=== PATIENT | female | born 1950 | race African-American/Black ===

== ENCOUNTER 2019-12-18 08:32 | Day surgery (SDC) | payer MEDICARE, MEDICAID, OTHER ==
[~2019-12-18] VITALS: Ht 165.1 cm; Wt 64.0 kg
[2019-12-18] MEDS ORDERED: SODIUM CHLORIDE 0.9% 1,000 ML IV SCH (09:00)
[2019-12-18 10:50] LABS: BASOPHILS % 0.6 % (0.0-2.0); EOSINOPHILS % 0.8 % (0.0-5.0); HEMATOCRIT. 27.8 % (36.0-48.0); HEMOGLOBIN. 9.4 g/dL (12.0-16.0); LYMPHOCYTES % 13.7 % (20.0-50.0); MEAN CORPUSCULAR HEMOGLOBIN 29.9 pg (28.0-32.0); MEAN CORPUSCULAR VOLUME 88.4 fL (81.0-99.0); MEAN PLATELET VOLUME 8.4 fl (7.4-10.4); MONOCYTES % 7.6 % (2.0-8.0); NEUTROPHILS % 77.3 % (40.0-76.0); PLATELET 193 x1000/uL (130-400); RED BLOOD CELL COUNT 3.14 mill/uL (4.2-5.4); RED CELL DISTRIBUTION WIDTH 14.2 % (11.6-14.6)
[2019-12-18 10:58] LABS: PARTIAL THROMBOPLASTIN TIME 25.2 sec (23.4-31.0); PROTHROMBIN TIME 10.6 sec (9.6-11.0)
[2019-12-18] MEDS ORDERED: CITA20TA19 PO (11:32)
[2019-12-18] MEDS ORDERED: AMLO5TAB88 PO (11:32)
[2019-12-18] MEDS ORDERED: INSU100I28 SQ (11:32)
[2019-12-18] MEDS ORDERED: FLUT9.9S NS (11:32)
[2019-12-18] MEDS ORDERED: ASPI-1497 PO (11:32)
[2019-12-18] MEDS ORDERED: LINA5TAB PO (11:32)
[2019-12-18] MEDS ORDERED: CYAN-33 PO (11:33)
[2019-12-18] MEDS ORDERED: TRAM50TA3 PO (11:33)
[2019-12-18] MEDS ORDERED: DIOS630T PO (11:33)
[2019-12-18] MEDS ORDERED: ACET325C4 PO (11:33)
[2019-12-18] MEDS ORDERED: HALO10TA13 PO (11:33)
[2019-12-18] MEDS ORDERED: FENTANYL CITRATE/PF 50MCG/ML 2ML VIAL ONE (13:07)
[2019-12-18] MEDS ORDERED: PROPOFOL 200MG/20ML VIAL IV ONE (13:07)
[2019-12-18] MEDS ORDERED: MIDAZOLAM HCL 2 MG/2 ML VIAL ONE (13:07)
[2019-12-18] MEDS ORDERED: EPHEDRINE SULFATE 50MG/ML VIAL ONE (13:08)
[2019-12-18] MEDS ORDERED: SODIUM CHLORIDE 0.9% 10ML VIAL ONE (13:08)
[2019-12-18] MEDS ORDERED: LIDOCAINE HCL/PF 1% 10 MG/ML 5ML VIAL ONE (13:08)
[2019-12-18] MEDS ORDERED: ROCURONIUM BROMIDE 10MG/ML VIAL 5ML IV ONE (13:17)
[2019-12-18] MEDS ORDERED: CEFAZOLIN SODIUM 1000MG/VIAL ONE (13:37)
[2019-12-18] MEDS ORDERED: HYDRALAZINE 20MG/ML VIAL ONE (14:36)
[2019-12-18] MEDS ORDERED: HYDROMORPHONE HCL/PF 2MG/ML CPJ IV PRN (15:00)
== END 2019-12-18 18:10 | disposition home or self-care (01) ==
LOC: OR 08:32
PROVIDERS: ATTEND Obstetrics & Gynecology Obstetrics
DX: N95.0 Postmenopausal bleeding (principal); I12.9 Hypertensive chronic kidney disease with stage 1 through stage 4 chronic kidney disease, or unspecified chronic kidney disease; E11.22 Type 2 diabetes mellitus with diabetic chronic kidney disease; N18.3 Chronic kidney disease, stage 3 (moderate); E78.00 Pure hypercholesterolemia, unspecified; F32.9 Major depressive disorder, single episode, unspecified; F41.9 Anxiety disorder, unspecified; F20.9 Schizophrenia, unspecified; Z79.4 Long term (current) use of insulin; Z79.82 Long term (current) use of aspirin; Z79.899 Other long term (current) drug therapy; Z98.890 Other specified postprocedural states
CPT/HCPCS: 36415; 58562; 82962; 85025; 85610; 85730; 87070; 87077; 88300; 88305; J0360; J0690; J2250; J2704; J3010; J3490; 87075